=== PATIENT | female | born 1960 | race Caucasian/White ===

== ENCOUNTER → 2018-05-13 | Outpatient (CLI) | payer BC ==
[2015-05-02 17:30] VITALS: BP 139/78
[~2018-05-13] MED LIST: CARV25TA2 PO; CHOL10003 PO; FERR325T58 PO; LISI1TAB7 PO; MELO15TA23 PO; METF500T16 PO; PRAV20TA2 PO
--- NOTE | 2018-05-13 15:30 | RAD ---
Nuclear Medicine Parathyroid Scan : History: Hypercalcemia. Technique: 20 mCi Tc-99m sestamibi was administered intravenously and spot views were obtained on a gamma camera with early and delayed imaging. Nuclear Medicine Parathyroid Scan: Findings: There is expected physiologic uptake in the salivary glands and thyroid. There is normal washout of the thyroid. There is no abnormal extrathyroid activity seen. Impression: Negative examination. Electronically signed by: Stevie Murphy MD (05/13/2018 3:25 PM) [id number]
== END | disposition home or self-care (01) ==
LOC: NM 09:04
PROVIDERS: ATTEND Internal Medicine
DX: E21.2 Other hyperparathyroidism (principal)
CPT/HCPCS: 78070; 96374; A9500